=== PATIENT | male | born 1980 | race Caucasian/White ===

== ENCOUNTER 2018-02-20 10:31 | Inpatient (IN) | payer BC ==
[2018-02-20 10:33] VITALS: BMI 27.1
--- NOTE | 2018-02-20 13:58 | HP ---
COWS - Scale Resting Pulse: 0= [place] 80 or Below Sweatin=Flushed/Facial Moisture Restless Observation: 3= Extraneous Movement Pupil Size: 2= Moderately Dilated Bone or Joint Aches: 2= Severe Diffuse Aches Runny Nose/ Eye Tearin= Runny Nose/Eyes GI Upset > 30mins: 3= Vomiting/Diarrhea Tremor Observation: 2= Slight Tremor Visible Yawning Observation: 1= 1-2x During Session Anxiety or Irritability: 2=Irritable/Anxious Goose Flesh Skin: 0=Smooth Skin COWS Score: 19 Admission ROS S - HPI Chief Complaint: i need help to stop using oxycodone Allergies/Adverse Reactions: Allergies Allergy/AdvReac Type Severity Reaction Status Date / Time No Known Allergies Allergy Verified 02/20/18 10:46 History of Present Illness: this 37 years old male with opioid dependence,[facility],never been in detox before withdrawal symptom insomnia Exam Limitations: No Limitations - Ebola screening Have you traveled outside of the country in the last 21 days: No Have you had contact with anyone from an Ebola affected area: No Have you been sick,other than usual withdrawal symptoms: No Do you have a fever: No - Review of Systems Constitutional: Chills, Loss of Appetite, Malaise, Night Sweats, Changes in sleep, Weakness EENT: reports: Tearing, Nose Congestion Respiratory: reports: No Symptoms reported Cardiac: reports: No Symptoms Reported GI: reports: Diarrhea, Nausea, Vomiting, Abdominal cramping : reports: No Symptoms Reported Musculoskeletal: reports: Back Pain, Joint Pain, Muscle Pain, Joint Stiffness Integumentary: reports: Dryness Neuro: reports: Headache, Tremors Endocrine: reports: No Symptoms Reported Hematology: reports: No Symptoms Reported Psychiatric: reports: No Sypmtoms Reported (insomnia), Mood/Affect Appropiate, Orientated x3 Patient History - Patient Medical History Hx Anemia: No Hx Asthma: No Hx Chronic Obstructive Pulmonary Disease (COPD): No Hx Cancer: No Hx Cardiac Disorders: No Hx Congestive Heart Failure: No Hx Hypertension: No Hx Hypercholesterolemia: No Hx Pacemaker: No HX Cerebrovascular Accident: No Hx Seizures: No Hx Dementia: No Hx Diabetes: No Hx Gastrointestinal Disorders: No Hx Liver Disease: No Hx Genitourinary Disorders: No Hx Sexually Transmitted Disorders: No Hx Renal Disease (ESRD): No Hx Thyroid Disease: No Hx Human Immunodeficiency Virus (HIV): No (12/09 negaive) Hx Hepatitis C: No Hx Depression: No Hx Suicide Attempt: No Hx Bipolar Disorder: No Hx Schizophrenia: No Other Medical History: insomnia,no suicidal,no homicidal - Patient Surgical History Past Surgical History: No Hx Neurologic Surgery: No Hx Cataract Extraction: No Hx Cardiac Surgery: No Hx Lung Surgery: No Hx Breast Surgery: No Hx Breast Biopsy: No Hx Abdominal Surgery: No Hx Appendectomy: No Hx Cholecystectomy: No Hx Genitourinary Surgery: No Hx Section: No Hx Orthopedic Surgery: No Anesthesia Reaction: No - PPD History Previous Implant?: Yes Documented Results: Negative w/o proof Implanted On Prior [facility] Admission?: No PPD to be Administered?: Yes - Smoking Cessation Smoking history: Never smoked Have you smoked in the past 12 months: No Hx Chewing Tobacco Use: No - Substance & Tx. History Hx Alcohol Use: No Hx Substance Use: Yes Substance Use Type: Opiates Hx Substance Use Treatment: No - Substances Abused OXYCODONE Route: Oral Frequency: Daily Amount used: 30MG (6 PILLS) FOR 180 MG Age of first use: 37 Date of Last Use: 02/18/18 Family Disease History - Family Disease History Family History: Denies Admission Physical Exam S - Vital Signs Vital Signs: Vital Signs - 24 hr 02/20/18 10:32 Temperature 97.5 F L Pulse Rate 58 L Respiratory 16 Rate Blood Pressure 146/83 - Physical General Appearance: Yes: Moderate Distress, Tremorous, Irritable, Sweating, Anxious HEENTM: Yes: Normal ENT Inspection, YANNICK, Pharynx Normal Respiratory: Yes: Lungs Clear, Normal Breath Sounds, No Respiratory Distress Neck: Yes: Within Normal Limits, Supple, Trachea in good position Breast: Yes: Within Normal Limits Cardiology: Yes: Within Normal Limits, Regular Rhythm, Regular Rate, S1, S2 Abdominal: Yes: Normal Bowel Sounds, Non Tender, Flat, Soft Genitourinary: Yes: Within Normal Limits Back: Yes: Muscle Spasm Musculoskeletal: Yes: Back pain, Joint Stiffness, Muscle Pain Extremities: Yes: Tremors 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
[2018-02-20] MEDS ORDERED: MAGNESIUM CITRATE 300 ML BOTTLE PO PRN (14:09)
[2018-02-20] MEDS ORDERED: IBUPROFEN 400 MG TABLET (FP) PO PRN (14:09)
[2018-02-20] MEDS ORDERED: MENTHOL/PHENOL 1 EACH UD MM PRN (14:09)
[2018-02-20] MEDS ORDERED: P-EPHED 60MG/TRIPROLIDI 2.5MG TABLET PO PRN (14:09)
[2018-02-20] MEDS ORDERED: ACETAMINOPHEN 325 MG TABLET (FP) PO PRN (14:09)
[2018-02-20] MEDS ORDERED: MAGNESIUM HYDROX 2400MG/30ML ORAL SUSPENSION 30 ML CUP PO PRN (14:09)
[2018-02-20] MEDS ORDERED: LOPERAMIDE HCL 2 MG CAPSULE PO PRN (14:09)
[2018-02-20] MEDS ORDERED: MAG HYDROX/AL HYDROX/SIMETH 30 ML UNIT-DOSE CUP PO PRN (14:09)
[2018-02-20] MEDS ORDERED: guaiFENesin/D-METHORPHAN HB 10 ML UNIT-DOSE CUPS PO PRN (14:09)
[2018-02-20] MEDS ORDERED: METHADONE HCL 10 MG TABLET (FOR DETOX USE ONLY) PO ONE ×2 (15:00→23:00)
[2018-02-20] MEDS: diazePAM 5 MG TABLET PO PRN (15:28)
[2018-02-20 17:19] LABS: URINE APPEARANCE TURBID; URINE BILIRUBIN NEGATIVE (<2.0 mg/dL); URINE COLOR DKYELLOW; URINE GLUCOSE (UA) NEGATIVE (NEGATIVE); URINE KETONE 1+ (NEGATIVE); URINE LEUK ESTERASE NEGATIVE (NEGATIVE); URINE NITRITE NEGATIVE (NEGATIVE); URINE PROTEIN NEGATIVE (NEGATIVE)
[2018-02-20] MEDS ORDERED: MELATONIN 5 MG TABLETS PO PRN (22:00)
[2018-02-20] MEDS: cloNIDine HCL 0.1 MG TABLET PO SCH (22:11)
[2018-02-20] MEDS: THIAMINE HCL 100 MG TABLET (FP) PO SCH (22:11)
[2018-02-21] MEDS ORDERED: METHADONE HCL 10 MG TABLET (FOR DETOX USE ONLY) PO ONE (10:00)
[2018-02-21] MEDS: PRENATAL VITAMINS W/ FOLIC ACID TABLET (FP) PO SCH (10:28)
[2018-02-21] MEDS: cloNIDine HCL 0.1 MG TABLET PO SCH ×2 (10:28→22:19)
[2018-02-21] MEDS: diazePAM 5 MG TABLET PO PRN ×2 (10:29→17:19)
[2018-02-21 10:46] LABS: HEMATOCRIT 38.1 % (35.4-49); HEMOGLOBIN 12.5 GM/dL (11.7-16.9); MCH 27.6 pg (25.7-33.7); MCHC 32.9 g/dl (32.0-35.9); MEAN CELL VOLUME 83.8 fl (80-96); MEAN PLT VOLUME 9.3 fl (7.5-11.1); PLATELET COUNT 196 K/MM3 (134-434); RBC 4.54 M/mm3 (4.00-5.60); RDW 12.9 % (11.9-15.9); WHITE BLOOD COUNT 5.1 K/mm3 (4.0-10.0)
[2018-02-21 10:58] LABS: CHLORIDE 107 mmol/L (98-107); POTASSIUM 3.7 mmol/L (3.5-5.1); SODIUM 142 mmol/L (136-145)
[2018-02-21 11:05] LABS: ALBUMIN 3.7 g/dl (3.4-5.0); ALK PHOS 67 U/L (45-117); ANION GAP 7 (8-16); BILIRUBIN,TOTAL 0.8 mg/dL (0.2-1.0); BLOOD UREA NITROGEN 14 mg/dL (7-18); CALCIUM 8.9 mg/dL (8.5-10.1); CO2 28 mmol/L (21-32); CREATININE 0.9 mg/dL (0.7-1.3); GLUCOSE,RANDOM 120 mg/dL (74-106); SGOT/AST 15 U/L (15-37); SGPT/ALT 23 U/L (12-78); TOT PROT 7.6 g/dl (6.4-8.2)
[2018-02-21 12:01] LABS: SICKLE CELL SCREEN NEGATIVE (NEGATIVE)
--- NOTE | 2018-02-21 13:28 | PN ---
S COWS - Scale Resting Pulse: 0= [place] 80 or Below Sweatin= Chills/Flushing Restless Observation: 3= Extraneous Movement Pupil Size: 2= Moderately Dilated Bone or Joint Aches: 4=Acute Joint/Muscle Pain Runny Nose/ Eye Tearin= None GI Upset > 30mins: 0= None Tremor Observation of Outstretched Hands: 1= Tremor [place], Not Seen Yawning Observation: 2= >3x During Session Anxiety or Irritability: 2=Irritable/Anxious Goose Flesh Skin: 0=Smooth Skin COWS Score: 15 BHS Progress Note (SOAP) Subjective: ANXIETY,SWEATS/CHILLS,LOWER BACK PAIN. Objective: 02/21/18 13:25 Vital Signs 02/21/18 02/21/18 06:23 09:41 Temperature 97.9 F 97.3 F L Pulse Rate 59 L 75 Respiratory 18 18 Rate Blood Pressure 123/75 136/85 Laboratory Tests 02/20/18 02/20/18 02/21/18 15:00 16:30 06:00 WBC 5.1 RBC 4.54 Hgb 12.5 Hct 38.1 MCV 83.8 MCH 27.6 MCHC 32.9 RDW 12.9 Plt Count 196 MPV 9.3 Sickle Cell Screen Negative Sodium Potassium Chloride Carbon Dioxide Anion Gap BUN Creatinine Creat Clearance w eGFR Random Glucose Calcium Total Bilirubin AST ALT Alkaline Phosphatase Total Protein Albumin Urine Color Dkyellow Urine Appearance Turbid Urine pH 5.0 Ur Specific [place] 1.023 Urine Protein Negative Urine Glucose (UA) Negative Urine Ketones 1+ H Urine Blood Negative Urine Nitrite Negative Urine Bilirubin Negative Urine Urobilinogen 2.0 Ur Leukocyte Esterase Negative RPR Titer HIV 1&2 Antibody Screen Negative HIV P24 Antigen Negative 02/21/18 02/21/18 06:00 06:00 WBC RBC Hgb Hct MCV MCH MCHC RDW Plt Count MPV Sickle Cell Screen Sodium 142 Potassium 3.7 Chloride 107 Carbon Dioxide 28 Anion Gap 7 L BUN 14 Creatinine 0.9 Creat Clearance w eGFR > 60 Random Glucose 120 H Calcium 8.9 Total Bilirubin 0.8 AST 15 ALT 23 Alkaline Phosphatase 67 Total Protein 7.6 Albumin 3.7 Urine Color Urine Appearance Urine pH Ur Specific [place] Urine Protein Urine Glucose (UA) Urine Ketones Urine Blood Urine Nitrite Urine Bilirubin Urine Urobilinogen Ur Leukocyte Esterase RPR Titer Nonreactive HIV 1&2 Antibody Screen HIV P24 Antigen Assessment: 02/21/18 13:26 WITHDRAWAL SX Plan: CONTINUE DETOX MOTRIN PRN FBS X 2 DAYS
--- NOTE | 2018-02-21 17:06 | EKG ---
Test Reason : Blood Pressure : / mmHG Vent. Rate : 056 BPM Atrial Rate : 056 BPM P-R Int : 142 ms QRS Dur : 110 ms QT Int : 408 ms P-R-T Axes : 045 050 026 degrees QTc Int : 393 ms SINUS BRADYCARDIA MINIMAL VOLTAGE CRITERIA FOR LVH, MAY BE NORMAL VARIANT BORDERLINE ECG Confirmed by MD NILESH, SYLVESTER ([id number]) on 02/21/2018 5:06:17 PM Referred By: Confirmed By:SYLVESTER GALLOWAY MD
--- NOTE | 2018-02-21 18:02 | CONSULT ---
[facility] Psychiatric Consult - Data Date of interview: 02/21/18 Admission source: [facility] Identifying data: First admission to [facility] for this 37 y/o male seeking detox treatment on for opiate dependence.Patient is single without children of his own (currently in a common-law relationship with five dependents),domiciled,unemployed and reportedly employed prior to [facility] visit. Substance Abuse History: Confirmed by the patient in my interview.Smoking history: Never smoked. Have you smoked in the past 12 months: No. Hx Chewing Tobacco Use: No. - Substance & Tx. History. Hx Alcohol Use: No. Hx Substance Use: Yes. Substance Use Type: Opiates. Hx Substance Use Treatment: No. - Substances Abused. OXYCODONE. Route: Oral. Frequency: Daily. Amount used : 30MG (6 PILLS) FOR 180 MG. Age of first use: 37. Date of Last Use: 02/18/18 Medical History: Patient endorses good general health. Psychiatric History: Patient denies. Physical/Sexual Abuse/Trauma History: Patient denies. Additional Comment: Urine Drug Screen Results: OPI-Opiates, MTD-Methadone.Noted. Mental Status Exam - Mental Status Exam Alert and Oriented to: Time, Place, Person Cognitive Function: Good Patient Appearance: Well Groomed Mood: Hopeful, Euthymic Affect: Appropriate, Normal Range Patient Behavior: Appropriate, Cooperative Speech Pattern: Clear (polish speaking), Appropriate Voice Loudness: Normal Thought Process: Intact, Goal Oriented Thought Disorder: Not Present Hallucinations: Denies Suicidal Ideation: Denies Homicidal Ideation: Denies Insight/Judgement: Fair Sleep: Poorly, Difficulty falling asleep Appetite: Good Muscle strength/Tone: Normal Gait/Station: Normal Psychiatric Findings - Problem List ([place] 1, 2,3) (1) Opioid dependence with withdrawal Current Visit: Yes Status: Acute (2) Insomnia Current Visit: Yes Status: Acute - Initial Treatment Plan Initial Treatment Plan: Psychoeducation.Sleep hygiene.Detoxification.Ambien 10 mg po hs prn.Patient is made aware of the risk of parasomnias.Mr Herman Dale agrees to this careplan.Observation.
[2018-02-21] MEDS: CYCLOBENZAPRINE HCL 10 MG TABLET (FP) PO PRN (22:18)
[2018-02-21] MEDS: THIAMINE HCL 100 MG TABLET (FP) PO SCH (22:18)
[2018-02-21] MEDS: ZOLPIDEM TARTRATE 5 MG TABLET PO PRN (22:19)
[2018-02-22] MEDS ORDERED: METHADONE HCL 5 MG TABLET (FOR DETOX USE ONLY) PO ONE (10:00)
[2018-02-22] MEDS: PRENATAL VITAMINS W/ FOLIC ACID TABLET (FP) PO SCH (10:19)
[2018-02-22] MEDS: diazePAM 5 MG TABLET PO PRN ×2 (10:19→21:49)
[2018-02-22] MEDS: cloNIDine HCL 0.1 MG TABLET PO SCH ×2 (10:19→21:49)
[2018-02-22] MEDS: CYCLOBENZAPRINE HCL 10 MG TABLET (FP) PO PRN (11:42)
--- NOTE | 2018-02-22 12:25 | PN ---
S COWS - Scale Resting Pulse: 1= [place] 81-100 Sweatin= Chills/Flushing Restless Observation: 3= Extraneous Movement Pupil Size: 0= Normal to Room Light Bone or Joint Aches: 4=Acute Joint/Muscle Pain Runny Nose/ Eye Tearin= Nasal Congestion GI Upset > 30mins: 0= None Tremor Observation of Outstretched Hands: 0= None Yawning Observation: 1= 1-2x During Session Anxiety or Irritability: 2=Irritable/Anxious Goose Flesh Skin: 3=Piloerection COWS Score: 16 BHS Progress Note (SOAP) Subjective: ANXIETY,IRRITABILITY,MUSCLE ACHES/CRAMPS,GOOSE BUMPS,NASAL CONGESTIONS. Objective: 02/22/18 12:21 Vital Signs 02/22/18 02/22/18 06:23 09:03 Temperature 97.4 F L 96.7 F L Pulse Rate 68 88 Respiratory 18 16 Rate Blood Pressure 129/81 133/88 Laboratory Tests 02/20/18 02/20/18 02/21/18 15:00 16:30 06:00 WBC 5.1 RBC 4.54 Hgb 12.5 Hct 38.1 MCV 83.8 MCH 27.6 MCHC 32.9 RDW 12.9 Plt Count 196 MPV 9.3 Sickle Cell Screen Negative Sodium Potassium Chloride Carbon Dioxide Anion Gap BUN Creatinine Creat Clearance w eGFR POC Glucometer Random Glucose Calcium Total Bilirubin AST ALT Alkaline Phosphatase Total Protein Albumin Urine Color Dkyellow Urine Appearance Turbid Urine pH 5.0 Ur Specific [place] 1.023 Urine Protein Negative Urine Glucose (UA) Negative Urine Ketones 1+ H Urine Blood Negative Urine Nitrite Negative Urine Bilirubin Negative Urine Urobilinogen 2.0 Ur Leukocyte Esterase Negative RPR Titer HIV 1&2 Antibody Screen Negative HIV P24 Antigen Negative 02/21/18 02/21/18 02/22/18 06:00 06:00 06:03 WBC RBC Hgb Hct MCV MCH MCHC RDW Plt Count MPV Sickle Cell Screen Sodium 142 Potassium 3.7 Chloride 107 Carbon Dioxide 28 Anion Gap 7 L BUN 14 Creatinine 0.9 Creat Clearance w eGFR > 60 POC Glucometer 74 Random Glucose 120 H Calcium 8.9 Total Bilirubin 0.8 AST 15 ALT 23 Alkaline Phosphatase 67 Total Protein 7.6 Albumin 3.7 Urine Color Urine Appearance Urine pH Ur Specific [place] Urine Protein Urine Glucose (UA) Urine Ketones Urine Blood Urine Nitrite Urine Bilirubin Urine Urobilinogen Ur Leukocyte Esterase RPR Titer Nonreactive HIV 1&2 Antibody Screen HIV P24 Antigen Assessment: 02/22/18 12:21 WITHDRAWAL SX Plan: CONTINUE DETOX MOTRIN; FLEXERIL; CLONIDINE; ACTIFED; DIRECTED. INCREASE PO FLUIDS.
[2018-02-22] MEDS: CYCLOBENZAPRINE HCL 10 MG TABLET (FP) PO SCH ×2 (14:41→21:49)
[2018-02-22] MEDS: THIAMINE HCL 100 MG TABLET (FP) PO SCH (21:49)
[2018-02-22] MEDS: ZOLPIDEM TARTRATE 5 MG TABLET PO PRN (21:49)
[2018-02-23] MEDS: CYCLOBENZAPRINE HCL 10 MG TABLET (FP) PO SCH ×3 (05:37→22:04)
[2018-02-23] MEDS: diazePAM 5 MG TABLET PO PRN ×2 (05:37→10:14)
[2018-02-23] MEDS ORDERED: METHADONE HCL 5 MG TABLET (FOR DETOX USE ONLY) PO ONE (10:00)
[2018-02-23] MEDS: PRENATAL VITAMINS W/ FOLIC ACID TABLET (FP) PO SCH (10:14)
[2018-02-23] MEDS: cloNIDine HCL 0.1 MG TABLET PO SCH ×2 (10:14→22:04)
[2018-02-23] MEDS ORDERED: WITCH HAZEL 50% (TUCKS) 40 PAD/JAR PAD TP PRN ×2 (12:20→12:44)
[2018-02-23] MEDS ORDERED: BENZOCAINE 28 GM HEMORRHOIDAL OINTMENT PR PRN ×2 (12:21→12:44)
[2018-02-23] MEDS: hydrOXYzine PAMOATE 50 MG CAPSULE (FP) PO PRN (14:19)
--- NOTE | 2018-02-23 16:08 | PN ---
[facility] Progress Note Note: Vital Signs Temperature 97.8 F 02/23/18 13:17 Pulse Rate 101 H 02/23/18 13:17 Respiratory Rate 20 02/23/18 13:17 Blood Pressure 135/90 02/23/18 13:17 O2 Sat by Pulse Oximetry (%) Laboratory Last Values WBC 5.1 K/mm3 (4.0-10.0) 02/21/18 06:00 RBC 4.54 M/mm3 (4.00-5.60) 02/21/18 06:00 Hgb 12.5 GM/dL (11.7-16.9) 02/21/18 06:00 Hct 38.1 % (35.4-49) 02/21/18 06:00 MCV 83.8 fl (80-96) 02/21/18 06:00 MCH 27.6 pg (25.7-33.7) 02/21/18 06:00 MCHC 32.9 g/dl (32.0-35.9) 02/21/18 06:00 RDW 12.9 % (11.9-15.9) 02/21/18 06:00 Plt Count 196 K/MM3 (134-434) 02/21/18 06:00 MPV 9.3 fl (7.5-11.1) 02/21/18 06:00 Sickle Cell Screen Negative (NEGATIVE) 02/21/18 06:00 Sodium 142 mmol/L (136-145) 02/21/18 06:00 Potassium 3.7 mmol/L (3.5-5.1) 02/21/18 06:00 Chloride 107 mmol/L (98-107) 02/21/18 06:00 Carbon Dioxide 28 mmol/L (21-32) 02/21/18 06:00 Anion Gap 7 (8-16) L 02/21/18 06:00 BUN 14 mg/dL (7-18) 02/21/18 06:00 Creatinine 0.9 mg/dL (0.7-1.3) 02/21/18 06:00 Creat Clearance w eGFR > 60 (>60) 02/21/18 06:00 POC Glucometer 84 UNITS (80-120) 02/23/18 05:36 Random Glucose 120 mg/dL (74-106) H 02/21/18 06:00 Calcium 8.9 mg/dL (8.5-10.1) 02/21/18 06:00 Total Bilirubin 0.8 mg/dL (0.2-1.0) 02/21/18 06:00 AST 15 U/L (15-37) 02/21/18 06:00 ALT 23 U/L (12-78) 02/21/18 06:00 Alkaline Phosphatase 67 U/L (45-117) 02/21/18 06:00 Total Protein 7.6 g/dl (6.4-8.2) 02/21/18 06:00 Albumin 3.7 g/dl (3.4-5.0) 02/21/18 06:00 Urine Color Dkyellow 02/20/18 16:30 Urine Appearance Turbid 02/20/18 16:30 Urine pH 5.0 (5.0-8.0) 02/20/18 16:30 Ur Specific [place] 1.023 (1.001-1.035) 02/20/18 16:30 Urine Protein Negative (NEGATIVE) 02/20/18 16:30 Urine Glucose (UA) Negative (NEGATIVE) 02/20/18 16:30 Urine Ketones 1+ (NEGATIVE) H 02/20/18 16:30 Urine Blood Negative (NEGATIVE) 02/20/18 16:30 Urine Nitrite Negative (NEGATIVE) 02/20/18 16:30 Urine Bilirubin Negative (<2.0 mg/dL) 02/20/18 16:30 Urine Urobilinogen 2.0 mg/dL (0.2-1.0) 02/20/18 16:30 Ur Leukocyte Esterase Negative (NEGATIVE) 02/20/18 16:30 RPR Titer Nonreactive (NONREACTIVE) 02/21/18 06:00 HIV 1&2 Antibody Screen Negative 02/20/18 15:00 HIV P24 Antigen Negative 02/20/18 15:00 c/o of back pain, chills, anxious, sweats , interrupted sleep Patient Aox3 no distress full ROM ambulating in the unit withdrawal symptoms Plan: continue detox flexeril PRN continue to monitor
[2018-02-23] MEDS: THIAMINE HCL 100 MG TABLET (FP) PO SCH (22:04)
[2018-02-23] MEDS: ZOLPIDEM TARTRATE 5 MG TABLET PO PRN (22:04)
[2018-02-24] MEDS: CYCLOBENZAPRINE HCL 10 MG TABLET (FP) PO SCH ×3 (05:44→22:09)
[2018-02-24] MEDS: hydrOXYzine PAMOATE 50 MG CAPSULE (FP) PO PRN ×4 (05:45→20:01)
[2018-02-24] MEDS ORDERED: METHADONE HCL 10 MG TABLET (FOR DETOX USE ONLY) PO ONE (10:00)
[2018-02-24] MEDS: cloNIDine HCL 0.1 MG TABLET PO SCH ×2 (10:22→22:09)
[2018-02-24] MEDS: PRENATAL VITAMINS W/ FOLIC ACID TABLET (FP) PO SCH (10:22)
--- NOTE | 2018-02-24 15:09 | PN ---
[facility] Progress Note (SOAP) Subjective: pt states he needs to leave early tomorrow- says he is doing fine Objective: 02/24/18 15:07 Vital Signs - 24 hr 02/23/18 02/23/18 02/24/18 18:23 21:53 01:27 Temperature 97.4 F L 97.1 F L Pulse Rate 109 H 96 H Respiratory 18 19 18 Rate Blood Pressure 133/87 135/91 02/24/18 02/24/18 02/24/18 03:30 06:44 09:35 Temperature 97.2 F L 97.9 F Pulse Rate 73 77 Respiratory 18 18 18 Rate Blood Pressure 123/79 150/98 02/24/18 14:15 Temperature 96.8 F L Pulse Rate 102 H Respiratory 153 H Rate Blood Pressure 150/98 Laboratory Tests 02/20/18 02/20/18 02/21/18 15:00 16:30 06:00 WBC 5.1 RBC 4.54 Hgb 12.5 Hct 38.1 MCV 83.8 MCH 27.6 MCHC 32.9 RDW 12.9 Plt Count 196 MPV 9.3 Sickle Cell Screen Negative Sodium Potassium Chloride Carbon Dioxide Anion Gap BUN Creatinine Creat Clearance w eGFR POC Glucometer Random Glucose Calcium Total Bilirubin AST ALT Alkaline Phosphatase Total Protein Albumin Urine Color Dkyellow Urine Appearance Turbid Urine pH 5.0 Ur Specific [place] 1.023 Urine Protein Negative Urine Glucose (UA) Negative Urine Ketones 1+ H Urine Blood Negative Urine Nitrite Negative Urine Bilirubin Negative Urine Urobilinogen 2.0 Ur Leukocyte Esterase Negative RPR Titer HIV 1&2 Antibody Screen Negative HIV P24 Antigen Negative 02/21/18 02/21/18 02/22/18 06:00 06:00 06:03 WBC RBC Hgb Hct MCV MCH MCHC RDW Plt Count MPV Sickle Cell Screen Sodium 142 Potassium 3.7 Chloride 107 Carbon Dioxide 28 Anion Gap 7 L BUN 14 Creatinine 0.9 Creat Clearance w eGFR > 60 POC Glucometer 74 Random Glucose 120 H Calcium 8.9 Total Bilirubin 0.8 AST 15 ALT 23 Alkaline Phosphatase 67 Total Protein 7.6 Albumin 3.7 Urine Color Urine Appearance Urine pH Ur Specific [place] Urine Protein Urine Glucose (UA) Urine Ketones Urine Blood Urine Nitrite Urine Bilirubin Urine Urobilinogen Ur Leukocyte Esterase RPR Titer Nonreactive HIV 1&2 Antibody Screen HIV P24 Antigen 02/23/18 02/24/18 05:36 05:43 WBC RBC Hgb Hct MCV MCH MCHC RDW Plt Count MPV Sickle Cell Screen Sodium Potassium Chloride Carbon Dioxide Anion Gap BUN Creatinine Creat Clearance w eGFR POC Glucometer 84 77 Random Glucose Calcium Total Bilirubin AST ALT Alkaline Phosphatase Total Protein Albumin Urine Color Urine Appearance Urine pH Ur Specific [place] Urine Protein Urine Glucose (UA) Urine Ketones Urine Blood Urine Nitrite Urine Bilirubin Urine Urobilinogen Ur Leukocyte Esterase RPR Titer HIV 1&2 Antibody Screen HIV P24 Antigen increased BP and KS- pt without sx pt walking Assessment: 02/24/18 15:09 continue opioid withdrawal protocol
[2018-02-24] MEDS: THIAMINE HCL 100 MG TABLET (FP) PO SCH (22:09)
[2018-02-25] MEDS: CYCLOBENZAPRINE HCL 10 MG TABLET (FP) PO SCH (05:47)
[2018-02-25] MEDS: hydrOXYzine PAMOATE 50 MG CAPSULE (FP) PO PRN (05:50)
[2018-02-25] MEDS ORDERED: METHADONE HCL 5 MG TABLET (FOR DETOX USE ONLY) PO ONE (06:00)
[2018-02-25 06:23] VITALS: BP 139/90; PULSE 67; TEMP 97.5
--- NOTE | 2018-02-25 19:39 | DS ---
[facility] Detox Discharge Summary Admission Date: 02/20/18 Discharge Date: 02/25/18 - History Present History: Opioid Dependence Additional Comments: PATIENT RETURNING HOME AND TO WORK. PATIENT MIGHT CONSIDER LOOKING INTO MMTP OR SUBOXONE PROGRAM ON HIS OWN LATER ON. PATIENT ALSO ADVISED TO CONSIDER LOCAL 12- STEP / NA OUTPATIENT PROGRAM FOR AFTERCARE. PATIENT WAS DISCHARGED FROM DETOX UNIT IN STABLE MEDICAL CONDITION. Pertinent Past History: Insomnia. - Physical Exam Results Vital Signs: Vital Signs Temperature 97.5 F L 02/25/18 06:22 Pulse Rate 67 02/25/18 06:22 Respiratory Rate 18 02/25/18 06:22 Blood Pressure 139/90 02/25/18 06:22 O2 Sat by Pulse Oximetry (%) Pertinent Admission Physical Exam Findings: WITHDRAWAL SYMPTOMS. Laboratory Tests 02/20/18 02/20/18 02/21/18 15:00 16:30 06:00 WBC 5.1 RBC 4.54 Hgb 12.5 Hct 38.1 MCV 83.8 MCH 27.6 MCHC 32.9 RDW 12.9 Plt Count 196 MPV 9.3 Sickle Cell Screen Negative Sodium Potassium Chloride Carbon Dioxide Anion Gap BUN Creatinine Creat Clearance w eGFR POC Glucometer Random Glucose Calcium Total Bilirubin AST ALT Alkaline Phosphatase Total Protein Albumin Urine Color Dkyellow Urine Appearance Turbid Urine pH 5.0 Ur Specific [place] 1.023 Urine Protein Negative Urine Glucose (UA) Negative Urine Ketones 1+ H Urine Blood Negative Urine Nitrite Negative Urine Bilirubin Negative Urine Urobilinogen 2.0 Ur Leukocyte Esterase Negative RPR Titer HIV 1&2 Antibody Screen Negative HIV P24 Antigen Negative 02/21/18 02/21/18 02/22/18 06:00 06:00 06:03 WBC RBC Hgb Hct MCV MCH MCHC RDW Plt Count MPV Sickle Cell Screen Sodium 142 Potassium 3.7 Chloride 107 Carbon Dioxide 28 Anion Gap 7 L BUN 14 Creatinine 0.9 Creat Clearance w eGFR > 60 POC Glucometer 74 Random Glucose 120 H Calcium 8.9 Total Bilirubin 0.8 AST 15 ALT 23 Alkaline Phosphatase 67 Total Protein 7.6 Albumin 3.7 Urine Color Urine Appearance Urine pH Ur Specific [place] Urine Protein Urine Glucose (UA) Urine Ketones Urine Blood Urine Nitrite Urine Bilirubin Urine Urobilinogen Ur Leukocyte Esterase RPR Titer Nonreactive HIV 1&2 Antibody Screen HIV P24 Antigen 02/23/18 02/24/18 05:36 05:43 WBC RBC Hgb Hct MCV MCH MCHC RDW Plt Count MPV Sickle Cell Screen Sodium Potassium Chloride Carbon Dioxide Anion Gap BUN Creatinine Creat Clearance w eGFR POC Glucometer 84 77 Random Glucose Calcium Total Bilirubin AST ALT Alkaline Phosphatase Total Protein Albumin Urine Color Urine Appearance Urine pH Ur Specific [place] Urine Protein Urine Glucose (UA) Urine Ketones Urine Blood Urine Nitrite Urine Bilirubin Urine Urobilinogen Ur Leukocyte Esterase RPR Titer HIV 1&2 Antibody Screen HIV P24 Antigen LABS NOTED. - Treatment Hospital Course: Detox Protocol Followed, Detoxed Safely, Responded well, Discharged Condition Good Patient has Accepted a Rehab Referral to: PATIENT ADVISED TO CONSIDER LOCAL 12- STEP/NA OUTPATIENT SUPPORT GROUPS. - Medication Discharge Medications: Ambulatory Orders NK [No Known Home Medication] 02/20/18 - Diagnosis (1) Insomnia Status: Acute Qualifiers: Insomnia type: unspecified Qualified Code(s): G47.00 - Insomnia, unspecified (2) Opioid dependence with withdrawal Status: Acute - AMA Did Patient Leave Against Medical Advice: No
== END 2018-02-25 09:10 | disposition home or self-care (01) | DRG 897 ==
LOC: YASAS 10:31 → Y3N 14:23
PROVIDERS: ADMIT Surgery; ATTEND Surgery
PROC: HZ2ZZZZ Detoxification Services for Substance Abuse Treatment (ICD-10-PCS; principal; 2018-02-20)
DX: F11.23 Opioid dependence with withdrawal (principal); G47.00 Insomnia, unspecified; M79.1 Myalgia
CPT/HCPCS: 36415; 80053; 81003; 82962; 85027; 85660; 86593; 87389; 93005; 93010; J0735